=== PATIENT | male | born 1960 | race Caucasian/White ===

== ENCOUNTER → 2018-01-13 | Day surgery (SDC) | payer BC ==
[2018-01-10 12:37] LABS: BASOPHILS # (AUTO) 0.1 (0.0-0.1); BASOPHILS % 1.2 % (0.0-1.0); EOSINOPHILS # (AUTO) 0.1 (0.0-0.4); EOSINOPHILS % 1.2 % (0.0-6.0); HEMATOCRIT 51.5 % (38.2-49.6); HEMOGLOBIN 18.5 g/dL (14.0-18.0); LYMPHOCYTES # (AUTO) 1.9 (1.0-3.2); LYMPHOCYTES % 19.4 % (18.0-39.1); MEAN CORPUSCULAR HEMOGLOBIN 32.6 pg (28-32); MEAN CORPUSCULAR HGB CONC 35.9 g/dL (31-35); MEAN CORPUSCULAR VOLUME 90.7 fL (81-99); MONOCYTES % 10.9 % (4.4-11.3); NEUTROPHILS # (AUTO) 6.4 (2.1-6.9); PLATELET COUNT 237 x10e3/uL (140-360); RED BLOOD COUNT 5.68 x10e6/uL (4.3-5.7); RED CELL DISTRIBUTION WIDTH 12.2 % (11.7-14.4)
[2018-01-10 12:53] LABS: BLOOD UREA NITROGEN 16 mg/dL (7-26); BUN/CREATININE RATIO 14 (6-25); CALCIUM 9.9 mg/dL (8.4-10.2); CHLORIDE 102 mmol/L (98-107); CREATININE, SERUM 1.13 mg/dL (0.72-1.25); EST GLOMERULAR FILTRATION RATE > 60 ML/MIN (60-); GLUCOSE 100 mg/dL (74-118); POTASSIUM 3.9 mmol/L (3.5-5.1); SODIUM 140 mmol/L (136-145)
[2018-01-10 13:16] LABS: ANION GAP 18.7 mmol/L (8-16); CARBON DIOXIDE 22 mmol/L (22-29)
[~2018-01-13] MED LIST: AMLODIPINE BESYL5 MG PO; BETAMETHASONE DISODIUM PHOS 6 MG/ML VIAL ONE; BUPIVACAINE HCL 0.5% INJ 30 ML VIAL INJ ONE; BYSTOLIC; CEFAZOLIN SOD 2 GM/D5W 50ML 50 ML IV ONE; DEXAMETHASONE SOD PHOS INJ 4 MG/ML VIAL ONE; EPHEDRINE SULFATE INJ 50 MG/10 ML SYR ONE; FENTANYL CITRATE/PF 100MCG/2 ML INJ ONE; GLYCOPYRROLATE INJ 1MG/ 5 ML SYR ONE; IBUPROFEN; JANUVIA100 MG PO; KETOROLAC TROMETHAMINE 30 MG/ML VIAL ONE; LIDOCAINE HCL 1% LOCAL INJ 20 ML VIAL ONE; LIDOCAINE HCL 2% LOCAL INJ 5 ML SDV VIAL INJ ONE; LISINOPRIL PO; LIVALO4 MG; MIDAZOLAM HCL 2 MG/2 ML VIAL ONE; MUPIROCIN 2% OINT 22 GM TUBE ONE; ONDANSETRON HCL INJ 2 MG/ML VIAL ONE; PROPOFOL IV EMULSION 10 MG/ML 20 ML VIAL ONE; ROSUVASTATIN; SEVOFLURANE INHAL SOLN 250 ML PEN BTL ONE; TYLENOL; ZETIA PO; ZETIA10 MG PO; [UNRECOGNIZED DRUG - REMARK]
--- OUTSIDE RECORDS SUMMARY | 2018-01-13 05:42 | XMS REPORT ---
Author [facility] Address Unknown Phone Unavailable Care Team Providers Care Supervisor Polishing Name Role Phone DR CRISTIAN CHISHOLM Unavailable Unavailable VENKATA HOANG Unavailable Unavailable Problems This patient has no known problems. Allergies, Adverse Reactions, Alerts This patient has no known allergies or adverse reactions. Medications This patient has no known medications. Encounters Start Date/Time End Date/Time Encounter Type Admission Type Attending [facility] Care Facility Care Department Encounter ID 2017-05-17 07:11:00 2017-05-17 17:27:00 Outpatient C CRISTIAN CHISHOLM [facility] [id number] Results Test Description Test Time Test Comments Text Results Atomic Results Result Comments GLUCOMETER GLUCOSE- LAB USE ONLY 2017-05-17 07:42:00 GLUCOMETER (test code=GMG) 143 mg/dL 70-100 Meter ID: [id number]: [id number] [facility] CHEST 2 VIEWS [place] [address] Patient Name: ROSALINA RUIZ MR #: [id number] : 1960 Age/Sex: 56/M Req #: [id number] Adm Physician: Ordered by: VENKATA HOANG DPM Report #: [id number] Location: OR Room/Bed: Procedure: [id number] DX/CHEST 2 VIEWS Exam Date: 12/05 Exam Time: 924 REPORT STATUS: Signed P ROCEDURE: CHEST 2 VIEWS TECHNIQUE: PA and lateral chest INDICATION: Pr eoperative evaluation for surgery COMPARISON: None. FINDINGS: Lungs are clear and symmetrically inflated. No pleural effusions. Normal heart size accounting for mildly prominent left pericardial fat pad. Normal central vas culature. Intact skeleton. CONCLUSION: No acute abnormality. Dictated by: Rosalina Hopkins M.D. on 12/14/2016 at 9:54 Elect ronically approved by: Rosalina Hopkins M.D. on 12/14/2016 at 9:54 Dictated By: ROSALINA HOPKINS MD 3 Transcribed By: CANDELARIA on 12/14/16953 COPY TO: VENKATA APPIAH DPM MRI ANKLE RIGHT WO [place] [address] Patient Name: ROSALINA RUIZ MR #: [id number] : 1960 Age/Sex: 56/M Req #: [id number] Adm Physician: Ordered by: VENKATA HOANG DPM Report #: [id number] Location: MRI Room/Bed: Procedure: [id number] MRI/MRI ANKLE RIGHT WO Exam Da te: 11/11/16 Exam Time: 1210 REPORT STATUS: Sig vinay TECHNIQUE: Magnetic resonance imaging of the RIGHT ANKLE was performed WITHOUT injected contrast. COMPARISON: None available. HISTORY: Right ankle pain FINDINGS: LIGAMENTS: Medial Complex: Scarring of the deep fibers. Lateral Complex: Sprain of the lateral ankle ligaments with partial tearing of the calcaneofibular ligament. Tibiofibular ligaments are i ntact. TENDONS: Medial: Intact Lateral: Intact Ante rior: Intact Achilles: Intact BONES: No focal or infiltrative lotus ne marrow replacing abnormality. No acute fracture or osteonecrosis. BLANCA INTS: Cartilage: No focal defect is identified involving the tibiotalar joint. Other: Small joint effusion. SOFT TISSUES: Soft tissue swelling and edema. IMPRESSION: Ankle inversion injury with sprain of the lateral ankle ligaments. Signed by: Dr. India Bailey M.D. on 11/11 12:55 PM Dictated By: INDIA BAILEY MD 1252 Transcribed By: SAMEER on 11/11/16 1258 COPY TO: VENKATA HOANG DPM
--- OUTSIDE RECORDS SUMMARY | 2018-01-13 05:42 | XMS REPORT | Clinical Summary ---
Author Author [facility] Organization [facility] Address Unknown Phone Unavailable Care Team Providers Care Interlibrary Loan Services Librarian Name Role Phone Joan Church PCP Allergies No Known Allergies Current Medications Prescription Sig. Disp. Refills Start End Date Status Date lisinopril Take 20 mg by mouth 09/24/19 Active (PRINIVIL,ZESTRIL) 20 MG daily. 16 tablet ezetimibe (ZETIA) 10 mg Take 10 mg by mouth Active tablet daily. IBUPROFEN IB ORAL Take by mouth. Active sodium,potassium,mag Please use as directed 2 Bottle 0 10/17/19 Active sulfates (SUPREP BOWEL 16 PREP KIT) 17.5-3.13-1.6 gram recon soln amLODIPine (NORVASC) 5 mg 07/02/19 Active tablet 18 cyclobenzaprine 08/24/19 Active (FLEXERIL) 10 mg tablet 18 ANDROGEL 20.25 mg/1.25 06/22/19 Active gram (1.62 %) gel in 18 metered-dose pump JANUVIA 100 mg tablet 08/24/19 Active 18 BYSTOLIC 10 mg tablet 07/02/19 Active 18 Active Problems Not on file Encounters Date Type Specialty Care Team Description 09/07/2017 Emergency Emergency Medicine Ana Khalil MD Alcoholic intoxication - with complication 09/08/2017 (Primary Dx); Dysarthria after 01/12/2017 Family History Medical History Relation Name Comments Cancer Father bladder Lung cancer Father Colon cancer Maternal Aunt Stroke Mother Colon cancer Paternal Grandmother Relation Name Status Comments Father Alive Maternal Aunt Mother Alive Paternal Grandmother Social History Tobacco Use Types Packs/Day Years Used Date Never Smoker Alcohol Use Drinks/Week oz/Week Comments Yes 2 Glasses of 1.2 wine Sex Assigned at Date Recorded Not on file Last Filed Vital Signs Vital Sign Reading Time Taken Blood Pressure 127/68 09/08/2017 12:38 AM CDT Pulse 92 09/08/2017 12:52 AM CDT Temperature 36.7 C (98.1 F) 09/08/2017 12:02 AM CDT Respiratory Rate 23 09/08/2017 12:33 AM CDT Oxygen Saturation 95% 09/08/2017 12:12 AM CDT Inhaled Oxygen - - Concentration Weight 96.6 kg (213 lb) 09/07/2017 11:36 PM CDT Height 177.8 cm (5' 10") 09/07/2017 11:36 PM CDT Body Mass Index 30.56 09/07/2017 11:36 PM CDT Plan of Treatment Health Maintenance Due Date Last Done Comments COLON CANCER SCREENING 2010 SHINGRIX VACCINE (#1) 2010 INFLUENZA VACCINE 10/05/2017 Procedures Procedure Name Priority Date/Time Associated Diagnosis Comments SMEAR REVIEW STAT 09/08/2017 Results for this 12:34 AM CDT procedure are in the results section. ZZESTIMATED GFR STAT 09/08/2017 Results for this 12:34 AM CDT procedure are in the results section. ALCOHOL LEVEL, BLOOD STAT 09/08/2017 Results for this 12:34 AM CDT procedure are in the results section. B NATRIURETIC PEPTIDE STAT 09/08/2017 Results for this 12:34 AM CDT procedure are in the results section. TROPONIN STAT 09/08/2017 Results for this 12:34 AM CDT procedure are in the results section. CREATINE KINASE, TOTAL STAT 09/08/2017 Results for this (CPK) 12:34 AM CDT procedure are in the results section. HEPATIC FUNCTION PANEL STAT 09/08/2017 Results for this 12:34 AM CDT procedure are in the results section. BASIC METABOLIC PANEL STAT 09/08/2017 Results for this 12:34 AM CDT procedure are in the results section. HC COMPLETE BLD COUNT STAT 09/08/2017 Results for this W/AUTO DIFF 12:34 AM CDT procedure are in the results section. CT ANGIOGRAM NECK W WO STAT 09/08/2017 Results for this CONTRAST 12:31 AM CDT procedure are in the results section. CT ANGIOGRAM HEAD W WO STAT 09/08/2017 Results for this CONTRAST 12:31 AM CDT procedure are in the results section. ECG 12-LEAD STAT 09/08/2017 Results for this 12:14 AM CDT procedure are in the results section. CT STROKE BRAIN WO STAT 09/08/2017 Results for this CONTRAST 12:10 AM CDT procedure are in the results section. ECG ED PRELIMINARY Routine 09/07/2017 Results for this INTERPRETATION 11:48 PM CDT procedure are in the results section. [place] [facility], E/M Routine 09/07/2017 Results for this 30-74 MINUTES 11:48 PM CDT procedure are in the results section. POC GLUCOSE Routine 09/07/2017 Results for this 11:37 PM CDT procedure are in the results section. after 01/12/2017 Results * Smear review (09/08/2017 12:34 AM) Platelet slide review Nohemi adequate [facility] AND GENOMIC MEDICINE Performing Organization Address City/[facility] Phone Number [facility] [address] [place] [address] PATHOLOGY AND [facility] * Estimated GFR (09/08/2017 12:34 AM) GFR Non Af Amer 52 (A) mL/min/1.73 m2 [facility]OLOGY AND GENOMIC MEDICINE GFR Af Amer 63 mL/min/1.73 m2 [facility] OF Comment: PATHOLOGY AND Chronic kidney disease: <60 GENOMIC MEDICINE mL/min/1.73m2 Kidney failure: <15 mL/min/1.73m2 The estimated GFR is calculated from the IDMS-traceable Modification of Diet in Renal Disease Equation. The accuracy of the calculation is poor when the creatinine is normal. Calculated values >90 mL/min/1.73m2 are not reported. This equation has not been validated in children (<18 years), women, the elderly (>70 years), or ethnic groups other than Caucasians and Americans. Specimen Plasma specimen Performing Organization Address City/State/Zipcode Phone Number [facility] OF [address] [place] [address] PATHOLOGY AND [facility] MEDICINE * Troponin (09/08/2017 12:34 AM) Troponin <0.30 0.00 - 0.30 ng/mL [facility] OF Comment: PATHOLOGY AND 0.11 - 1.49 GENOMIC MEDICINE ng/mlMay indicate increased risk of acute coronary syndrome. >=1.5 ng/ml Consistent with acute myocardial infarction. The diagnostic value of a single normal or non-diagnostic result is questionable.Serial samples at 2-6 hour intervals are required to rule out acute myocardial injury. Specimen Plasma specimen Performing Organization Address City/State/Zipcode Phone Number [facility] [address] [place] [address] PATHOLOGY AND GENOMIC MEDICINE * CBC with platelet and differential (09/08/2017 12:34 AM) WBC 9.7 4.2 - 11.0 k/uL [facility] OF PATHOLOGY AND GENOMIC MEDICINE RBC 5.04 4.04 - 5.86 m/uL [facility] PATHOLOGY AND GENOMIC MEDICINE HGB 15.8 13.0 - 17.3 g/dL [facility] PATHOLOGY AND GENOMIC MEDICINE HCT 47.5 (H) 34.0 - 45.0 % [facility] PATHOLOGY AND GENOMIC MEDICINE MCV 94.2 80.0 - 98.0 fL [facility]OLOGY AND GENOMIC MEDICINE MCH 31.3 27.0 - 34.0 pg [facility] OF PATHOLOGY AND GENOMIC MEDICINE MCHC 33.3 31.5 - 36.5 g/dL [facility] PATHOLOGY AND GENOMIC MEDICINE RDW - SD 48.2 37.0 - 51.0 fL [facility] PATHOLOGY AND GENOMIC MEDICINE MPV 10.1 7.4 - 10.4 fL [facility] PATHOLOGY AND GENOMIC MEDICINE Platelet count 322 150 - 400 k/uL [facility] PATHOLOGY AND GENOMIC MEDICINE Nucleated RBC 0.00 /100 WBC [facility] OF PATHOLOGY AND GENOMIC MEDICINE Neutrophils 64.3 36.0 - 66.0 % [facility] OF PATHOLOGY AND GENOMIC MEDICINE Lymphocytes 24.8 24.0 - 44.0 % [facility] OF PATHOLOGY AND GENOMIC MEDICINE Monocytes 7.8 (H) 0.0 - 6.0 % [facility] OF PATHOLOGY AND GENOMIC MEDICINE Eosinophils 1.9 0.0 - 6.0 % [facility] OF PATHOLOGY AND GENOMIC MEDICINE Basophils 0.9 0.0 - 1.2 % [facility] OF PATHOLOGY AND GENOMIC MEDICINE Immature granulocytes 0.3 0.0 - 1.0 % [facility] OF PATHOLOGY AND GENOMIC MEDICINE Specimen Blood Performing Organization Address City/State/Zipcode Phone Number [facility] [address] [place] [address] PATHOLOGY AND [facility] MEDICINE * B natriuretic peptide (09/08/2017 12:34 AM) BNP 26 0 - 100 pg/mL [facility] PATHOLOGY AND GENOMIC MEDICINE Specimen Blood Performing Organization Address City/[facility] [place] [address] PATHOLOGY AND GENOMIC MEDICINE * Creatine kinase, total (CPK) (09/08/2017 12:34 AM) Creatine kinase 168 39 - 308 U/L [facility] OF PATHOLOGY AND GENOMIC MEDICINE Specimen Plasma specimen Performing Organization Address City/[facility] [place] [address] PATHOLOGY AND GENOMIC MEDICINE * Alcohol level, blood (09/08/2017 12:34 AM) Alcohol 356.8 mg/dL [facility] OF Comment: PATHOLOGY AND Normal GENOMIC MEDICINE None Detected Legal Intoxication in [place] 80 mg/dL (0.08%) Toxic Concentration 200 mg/dL (0.2%) Potentially Fatal 350-500 mg/dL (0.35%-0.5%) Alcohol percent 0.357 % [facility] OF PATHOLOGY AND GENOMIC MEDICINE Specimen Blood Performing Organization Address [facility] [place] [address] PATHOLOGY AND GENOMIC MEDICINE * Hepatic function panel (09/08/2017 12:34 AM) Albumin 3.9 3.5 - 5.0 g/dL [facility] PATHOLOGY AND GENOMIC MEDICINE Total bilirubin 0.3 0.2 - 1.2 mg/dL [facility] PATHOLOGY AND GENOMIC MEDICINE Bilirubin direct <0.2 0.0 - 0.4 mg/dL [facility] PATHOLOGY AND GENOMIC MEDICINE Alkaline phosphatase 113 0 - 129 U/L [facility] PATHOLOGY AND GENOMIC MEDICINE Protein 7.3 6.3 - 8.3 g/dL [facility] PATHOLOGY AND GENOMIC MEDICINE ALT 42 5 - 50 U/L [facility] OF PATHOLOGY AND GENOMIC MEDICINE AST 46 10 - 50 U/L [facility] OF PATHOLOGY AND GENOMIC MEDICINE Specimen Plasma specimen Performing Organization Address City/[facility] [place]erc[place] [address] PATHOLOGY AND GENOMIC MEDICINE * Basic metabolic panel (09/08/2017 12:34 AM) Sodium 141 135 - 150 mEq/L [facility] PATHOLOGY AND GENOMIC MEDICINE Potassium 3.7 3.5 - 5.0 mEq/L [facility] PATHOLOGY AND GENOMIC MEDICINE Chloride 106 98 - 112 mEq/L [facility] PATHOLOGY AND GENOMIC MEDICINE CO2 18 (L) 24 - 31 mmol/L [facility] PATHOLOGY AND GENOMIC MEDICINE Anion gap 17@ANIO (H) 7 - 15 mEq/L [facility] PATHOLOGY AND GENOMIC MEDICINE BUN 30 (H) 7 - 18 mg/dL [facility] PATHOLOGY AND GENOMIC MEDICINE Creatinine 1.40 (H) 0.70 - 1.20 mg/dL [facility] PATHOLOGY AND GENOMIC MEDICINE Glucose 116 (H) 65 - 100 mg/dL [facility] OF PATHOLOGY AND GENOMIC MEDICINE Calcium 9.2 8.3 - 10.2 mg/dL [facility] OF PATHOLOGY AND GENOMIC MEDICINE Specimen Plasma specimen Performing Organization Address City/State/Zipcode Phone Number [place] [id number] [place] [address] PATHOLOGY AND GENOMIC MEDICINE * CTA Neck W Wo Contrast (09/08/2017 12:31 AM) Narrative Performed At EXAMINATION: CT ANGIOGRAM NECK W WO CONTRAST [facility] CLINICAL HISTORY: cva COMPARISON:None TECHNIQUE: Imaging of the cervical circulation was obtained from the upper thorax to the skull base during the arterial phase of enhancement. Postprocessing was performed with MIP multiplanar and 3D reconstructed images. CT scans are performed using radiation dose reduction techniques. Technical factors are evaluated and adjusted to ensure appropriate moderation of exposure. Automated dose management technology is applied to adjust radiation exposure while achieving a diagnostic quality image. FINDINGS: The common carotid arteries, carotid bulbs, internal carotid arteries and external carotid arteries are opacified with 0% stenosis by NASCET criteria. The vertebral arteries are patent throughout the visualized cervical segments without significant stenosis. The vertebral arteries are roughly codominant. IMPRESSION: No hemodynamically significant narrowing of the cervical vessels by NASCET criteria. [facility]-[id number] Procedure Note Interface, Radiology Results Incoming - 09/08/2017 12:44 AM CDT EXAMINATION: CT ANGIOGRAM NECK W WO CONTRAST CLINICAL HISTORY: cva COMPARISON: None TECHNIQUE: Imaging of the cervical circulation was obtained from the upper thorax to the skull base during the arterial phase of enhancement. Postprocessing was performed with MIP multiplanar and 3D reconstructed images. CT scans are performed using radiation dose reduction techniques. Technical factors are evaluated and adjusted to ensure appropriate moderation of exposure. Automated dose management technology is applied to adjust radiation exposure while achieving a diagnostic quality image. FINDINGS: The common carotid arteries, carotid bulbs, internal carotid arteries and external carotid arteries are opacified with 0% stenosis by NASCET criteria. The vertebral arteries are patent throughout the visualized cervical segments without significant stenosis. The vertebral arteries are roughly codominant. IMPRESSION: No hemodynamically significant narrowing of the cervical vessels by NASCET criteria. [facility]-[id number] Performing Organization Address City/State/Zipcode Phone Number [facility] [address] [place] [address] * CTA Head W Wo Contrast (09/08/2017 12:31 AM) Narrative Performed At EXAMINATION: CT ANGIOGRAM HEAD W WO CONTRAST [facility] CLINICAL HISTORY: cvba COMPARISON:None TECHNIQUE:Imaging of the intracranial circulation was obtained from the skull base to the vertex during the arterial phase of enhancement. Postprocessing was performed with MIP multiplanar and 3D reconstructed images. CT scans are performed using radiation dose reduction techniques. Technical factors are evaluated and adjusted to ensure appropriate moderation of exposure. Automated dose management technology is applied to adjust radiation exposure while achieving a diagnostic quality image. FINDINGS: No hemodynamically significant stenosis is identified of the intracranial internal carotid arteries, middle cerebral arteries, anterior cerebral arteries, intracranial vertebral arteries, basilar artery or posterior cerebral arteries. There is no aneurysmal dilatation or vascular malformation of the rose[place] of [place]. The major dural sinuses are opacified normally. IMPRESSION: No hemodynamically significant narrowing of the rose[place] vessels. [facility]-[id number] Procedure Note [facility], Radiology Results Incoming - 09/08/2017 12:41 AM CDT EXAMINATION: CT ANGIOGRAM HEAD W WO CONTRAST CLINICAL HISTORY: cvba COMPARISON: None TECHNIQUE: Imaging of the intracranial circulation was obtained from the skull base to the vertex during the arterial phase of enhancement. Postprocessing was performed with MIP multiplanar and 3D reconstructed images. CT scans are performed using radiation dose reduction techniques. Technical factors are evaluated and adjusted to ensure appropriate moderation of exposure. Automated dose management technology is applied to adjust radiation exposure while achieving a diagnostic quality image. FINDINGS: No hemodynamically significant stenosis is identified of the intracranial internal carotid arteries, middle cerebral arteries, anterior cerebral arteries, intracranial vertebral arteries, basilar artery or posterior cerebral arteries. There is no aneurysmal dilatation or vascular malformation of the [place] of [place]. The major dural sinuses are opacified normally. IMPRESSION: No hemodynamically significant narrowing of the [place] vessels. [facility]-[id number] Performing Organization Address [facility] Centercone Phone Number [facility] [address] [place] [address] * ECG 12 lead (09/08/2017 12:14 AM) Ventricular rate 93 [facility] MUSE Atrial rate 93 [facility] MUSE [place] interval 162 [facility] M[facility] QRSD interval 120 [facility] M[facility] QT interval 388 [facility] QTC interval 482 [facility] MUSE P axis 1 47 [facility] MUSE QRS axis 1 -35 [facility] MUSE T wave axis 8 [facility] MUSE EKG impression Normal sinus rhythm-Left axis [facility] MUSE deviation-Nonspecific intraventricular conduction delay-Abnormal ECG-- Performing Organization Address [facility] Phone Number [facility] [address] [place] [address] * CT Stroke Brain Wo Contrast (09/08/2017 12:10 AM) Narrative Performed At CT [facility]RAIN [facility]ICAL INDICATION:cva TECHNIQUE: Routine unenhanced multidetector CT examination of the brain. CT imaging was performed with iterative reconstruction technique and/or automated exposure control to reduce radiation dose. COMPARISON:None FINDINGS: The ventricles and sulci are normal in caliber and configuration. There is no mass, mass effect or midline shift. Diaz-white matter differentiation is maintained. No acute intracranial hemorrhage is identified. There is no extra-axial fluid collection. Basal cisterns are patent. The visualized orbits are unremarkable. The paranasal sinuses and mastoid air cells are clear. The calvarium is intact without depressed fracture. IMPRESSION: No acute intracranial abnormality. Findings were discussed with Dr. ANA KHALIL at 09/08/2017 12:20 AM who verbalized understanding. [facility]-[id number] Procedure Note Interface, Radiology Results Incoming - 09/08/2017 12:[address] STROKE BRAIN WO CONTRAST CLINICAL INDICATION: cva TECHNIQUE: Routine unenhanced multidetector CT examination of the brain. CT imaging was performed with iterative reconstruction technique and/or automated exposure control to reduce radiation dose. COMPARISON: None FINDINGS: The ventricles and sulci are normal in caliber and configuration. There is no mass, mass effect or midline shift. Diaz-white matter differentiation is maintained. No acute intracranial hemorrhage is identified. There is no extra- axial fluid collection. Basal cisterns are patent. The visualized orbits are unremarkable. The paranasal sinuses and mastoid air cells are clear. The calvarium is intact without depressed fracture. IMPRESSION: No acute intracranial abnormality. Findings were discussed with Dr. ANA KHALIL at 09/08/2017 12:20 AM who verbalized understanding. [facility]-[id number] Performing Organization Address City/State/Zipcode Phone Number [facility] [address] [place] [address] * ECG ED Preliminary Interpretation - NOT AN ORDER (09/07/2017 11:48 PM) Narrative Performed At Ana Khalil MD 09/08/20171:46 AM ECG ED Preliminary Interpretation - Not an Order Performed by: ANA KHALIL Authorized by: ANA KHALIL ECG reviewed by ED Physician in the absence of a picking supervisor: yes Interpretation: Interpretation: abnormal Rate: ECG rate:93 ECG rate assessment: normal Rhythm: Rhythm: sinus rhythm QRS: QRS axis:Left Comments: Normal sinus rhythm. Left axis deviation. Abnormal EKG * CRITICAL CARE (09/07/2017 11:48 PM) Narrative Performed At Ana Khalil MD 09/08/20171:46 AM Critical Care Performed by: ANA KHALIL Authorized by: ANA KHALIL Critical care provider statement: Critical care time (minutes):35 Critical care end time:09/08/2017 1:25 AM Critical care time was exclusive of:Separately billable procedures and treating other patients and teaching time Critical care was necessary to treat or prevent imminent or life-threatening deterioration of the following conditions:SKIN LAP BONDER failure or compromise Critical care was time spent personally by me on the following activities:Ordering and performing treatments and interventions, ordering and review of laboratory studies, ordering and review of radiographic studies, pulse oximetry, re-evaluation of patient's condition, discussions with consultants, development of treatment plan with patient or surrogate, blood draw for specimens, evaluation of patient's response to treatment, examination of patient, interpretation of cardiac output measurements and obtaining history from patient or surrogate * POC glucose (09/07/2017 11:37 PM) POC glucose 121 (H) 65 - 100 mg/dL [facility] Comment: PATHOLOGY AND Meter ID: [id number] GENOMIC MEDICINE Stunt Man: Azeb Somers Performing Organization Address City/State/Zipcode Phone Number [facility] [place] [address] PATHOLOGY AND GENOMIC MEDICINE after 01/12/2017 Insurance Payer Benefit Subscriber ID Type Phone Address Plan / Group BCBS BCBS xxxxxxxxxxxx PPO CHOICE PPO/NA TANNER PPO
[2018-01-13 09:12] VITALS: BP 125/95
--- NOTE | 2018-01-13 09:26 | Operative Report ---
DATE OF PROCEDURE: January 13, 2018 PREOPERATIVE DIAGNOSES 1. Painful, contracted hammertoe, 2nd digit, left foot. 2. Painful, contracted hammertoe, 3rd digit, left foot. 3. Painful, contracted hammertoe, 4th digit, left foot. 4. Painful, contracted hammertoe, 5th digit, left foot. 5. Painful neuroma, 2nd interspace, left foot. 6. Painful neuroma, 3rd interspace, left foot. POSTOPERATIVE DIAGNOSES 1. Painful, contracted hammertoe, 2nd digit, left foot. 2. Painful, contracted hammertoe, 3rd digit, left foot. 3. Painful, contracted hammertoe, 4th digit, left foot. 4. Painful, contracted hammertoe, 5th digit, left foot. 5. Painful neuroma, 2nd interspace, left foot. 6. Painful neuroma, 3rd interspace, left foot. OPERATIVE PROCEDURES 1. Arthroplasty, 2nd digit, with Ariella wire fixation. 2. Arthroplasty, 3rd digit, with Ariella wire fixation. 3. Arthroplasty, 4th digit, with Arielal wire fixation. 4. Arthroplasty, 5th digit. 5. 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 6. Excision of Wilson's neuroma, 3rd interspace, left foot. 7. Intraoperative use of fluoroscopy. 8. Trigger-point shot of cortisone. 9. Application of posterior splint. ANESTHESIA: General. HEMOSTASIS: Pneumatic thigh tourniquet at 350 mmHg. PROCEDURE IN DETAIL: Patient was taken into the operating room and placed on the operating room table in the supine position. Following induction of general anesthesia by the anesthesiologist, Webril wraps were placed on the patient's left thigh followed by application of a left thigh tourniquet. The left lower extremity was then prepped and draped in the usual aseptic manner, and the following procedures were then performed: Procedures number 1 through 4: Arthroplasties of 2nd through 5th digits, left foot, with K-wire fixation of 2nd through 4th. Attention was directed to the distal interphalangeal joint of the 2nd toe, left foot and the proximal interphalangeal joint of 3rd, 4th and 5th digits, where a curvilinear incision was performed. The incision was deepened down to the joint capsule. Transverse capsulotomy was then performed, exposing the head of the middle phalanx of the 2nd toe and head of the proximal phalanx of the 3rd, 4th and 5th digits. Via the use of an oscillating saw, the heads of the proximal phalanges were excised from the operation site in toto. All rough and bony edges were rasped smooth. The 2nd through 4th toes were still noted to be contracted so a 0.045 K-wire was introduced up to the metatarsophalangeal joint to achieve proper anatomical reduction. Procedures 5 and 6: Excision of Wilson's neuroma, 2nd and 3rd interspaces, left foot: Attention was then directed to the 2nd and 3rd interspaces of the left foot where a curvilinear incision was performed. The incision was deepened down to the intermetatarsal ligament. Intermetatarsal ligament was then cut, and a white soft-tissue mass was then encountered. Proper digital branches to the toes and intermetatarsal branch were then excised via the use of meticulous dissection and sent for pathological analysis. All areas were then copiously flushed with sterile antibiotic solution and suctioned. Procedure #7: Intraoperative use of fluoroscopy was then used after K-wire was introduced to the metatarsophalangeal joint to make sure proper alignment and fixation were achieved. Closure was then obtained utilizing 3-0 Vicryl, 4-0 Vicryl and 4-0 nylon for capsule, subcutaneous tissue and skin respectively. Procedure #8: Trigger-point shot of cortisone was then given to the 2nd and 3rd interspaces of the left foot. Then approximately 15 mL of 0.5% plain Marcaine plus 5 mL of 1% Xylocaine plain were used to achieve local anesthesia of the above-mentioned surgical area. Sterile dressing was applied. Upon release of the thigh tourniquet, blood hyperemia was noted to all digits of the left foot. Procedure #9: Application of posterior splint. A properly placed posterior splint was then applied, keeping the foot at 90 degrees with respect to the leg to try to prevent any type of postop complications. Patient was then transferred from the OR to the recovery room with vital signs stable and neurovascular status intact. No intraoperative complications were encountered. Blood loss from the surgery was minimal. Patient is to remain nonweightbearing with the aid of crutches, keep her foot elevated, and is to apply an ice pack to the ankle joint area. Patient understands no warranties or guarantees were given. Patient will follow up within 1 week. Job#: [id number] JULIANN
--- NOTE | 2018-01-13 10:00 | Diagnostic Imaging Report ---
PROCEDURE:X-RAY LEFT FOOT, TWO VIEWS COMPARISON:None. INDICATIONS:POST OPERATIVE LEFT FOOT SURGERY FINDINGS: See conclusion. CONCLUSION: AP and lateral post-operative views of the left foot with overlying bandage material show post-surgical changes of a bunionectomy and arthroplasty with wire and screw through the distal first metatarsal and K wires through the second, third and fourth phalanges. There is surrounding soft-tissue swelling consistent with recent surgery. Please refer to performing physician's notes for full details of this procedure. Cristobal Feliciano D.O. Dictated by: Cristobal Feliciano D.O. on 01/13/2018 at 10:09 Electronically approved by: Cristobal Feliciano D.O. on 01/13/2018 at 10:09
== END | disposition home or self-care (01) ==
LOC: OR 05:39
PROVIDERS: ATTEND Podiatrist Foot Surgery
DX: M20.42 Other hammer toe(s) (acquired), left foot (principal); G57.62 Lesion of plantar nerve, left lower limb; Z01.810 Encounter for preprocedural cardiovascular examination; Z01.812 Encounter for preprocedural laboratory examination; E11.9 Type 2 diabetes mellitus without complications; Z79.84 Long term (current) use of oral hypoglycemic drugs; I10 Essential (primary) hypertension; R01.1 Cardiac murmur, unspecified; K21.9 Gastro-esophageal reflux disease without esophagitis; K44.9 Diaphragmatic hernia without obstruction or gangrene; K57.90 Diverticulosis of intestine, part unspecified, without perforation or abscess without bleeding; N20.0 Calculus of kidney; Z98.1 Arthrodesis status
CPT/HCPCS: 28080 ×2; 28285 ×4; 36415 ×2; 73620; 80048; 82948; 85025; 88305; 93005; J0690; J0720; J1100; J1885; J2001 ×2; J2250; J2405; J2704; J3490; 88304; C1713